=== PATIENT | female | born 1975 | race Two or more races ===

== ENCOUNTER 2022-05-29 17:35 | Emergency (ER) | payer SELFPAY ==
[~2022-05-29] VITALS: Ht 165.1 cm; Wt 105.0 kg
[2022-05-29 21:11] LABS: Albumin 3.8 g/dL (3.4-5.0); BUN/Creatinine Ratio 15.1; Potassium 3.9 mmol/L (3.5-5.1)
[2022-05-29 21:14] LABS: Bilirubin, Total 0.2 mg/dL (0.2-1.0); Total Protein 7.6 g/dL (6.4-8.2)
[2022-05-29 21:20] LABS: Basophils # (auto) 0.2 10 ^3/uL (0-0.2); Basophils % (auto) 1.4 % (0.0-2.0); Eosinophils # (auto) 0.8 10 ^3/uL (0-0.8); Eosinophils % (auto) 6.6 % (0.0-7.0); Hematocrit 37.1 % (36.0-46.0); Hemoglobin 12.4 g/dL (12.2-16.2); Lymphocytes # (auto) 2.7 10 ^3/uL (0.4-5.4); Lymphocytes % (auto) 21.5 % (10.0-50.0); Mean Corpuscular Hemoglobin 27.1 pg (28.0-32.0); Mean Corpuscular Hgb Conc. 33.5 g/dL (32.0-36.0); Monocytes # (auto) 0.9 10 ^3/uL (0-1.3); Monocytes % (auto) 6.8 % (0.0-12.0); Neutrophils # (auto) 8.1 10 ^3/uL (1.6-8.6); Neutrophils % (auto) 63.7 % (37.0-80.0); Nucleated Red Blood Cells % 0.2 %; Red Blood Cells 4.58 10^6/uL (4.0-5.20); Red Cell Distribution Width 15.7 % (11.8-14.3); White Blood Cell 12.8 10^3/uL (4.4-10.8)
[2022-05-30 00:29] LABS: Urine Bacteria FEW /hpf (None Seen); Urine Blood 3+ /uL (Negative); Urine Specific Gravity 1.011 (1.001-1.035); Urine WBC 7 /hpf (0 - 5)
[2022-05-30] MEDS ORDERED: NITR-87 PO (00:47)
[2022-05-30] MEDS ORDERED: cefTRIAXone SOD 1,000 MG VL IM ONE (01:00)
[2022-05-30 01:36] VITALS: BP 134/81
== END 2022-05-30 01:37 | disposition home or self-care (01) ==
LOC: ER 17:35
DX: N39.0 Urinary tract infection, site not specified (principal)
CPT/HCPCS: 36415; 71045; 80053; 81001; 83880; 84484; 85025; 85379; 96372; 99284; J0696

== ENCOUNTER 2023-08-21 17:57 | Emergency (ER) | payer MEDICAID, OTHER ==
[~2023-08-21] VITALS: Ht 165.1 cm; Wt 91.7 kg
[~2023-08-21 17:57] MED LIST: NITR-87 PO
[2023-08-21 18:50] VITALS: BP 137/84; PULSE 77; RESP 18; O2SAT 99
== END 2023-08-21 21:57 | disposition left against medical advice (07) ==
LOC: ER 17:57
DX: K62.89 Other specified diseases of anus and rectum (principal); Z53.21 Procedure and treatment not carried out due to patient leaving prior to being seen by health care provider

== ENCOUNTER 2023-09-25 15:24 | Emergency (ER) | payer MEDICAID ==
[~2023-09-25] VITALS: Ht 165.1 cm; Wt 88.0 kg
[2023-09-25 16:36] VITALS: BP 133/75; PULSE 74; RESP 16; TEMP 97.9; O2SAT 95
[2023-09-25] MEDS: HYDROcodone-ACET 5/325MG TAB PO ONE (16:43)
[2023-09-25 16:57] LABS: Urine Bacteria FEW /hpf (None Seen); Urine Blood 3+ /uL (Negative); Urine Clarity Turbid (Clear); Urine Color Colorless (Yellow); Urine Protein, UAD TRACE (Negative); Urine Specific Gravity 1.003 (1.001-1.035); Urine Urobilinogen Normal (Negative); Urine WBC 4 /hpf (0 - 5)
[2023-09-25] MEDS: NITROFURANTOIN 100 mg CAP PO ONE (17:15)
[2023-09-25] MEDS ORDERED: NITR-87 PO (17:26)
[2023-09-25] MEDS ORDERED: IBUP-1455 PO (17:26)
[2023-09-25] MEDS ORDERED: HYDR-4902 PO (17:26)
== END 2023-09-25 18:14 | disposition home or self-care (01) ==
LOC: ER 15:24
DX: N39.0 Urinary tract infection, site not specified (principal); K62.89 Other specified diseases of anus and rectum; R10.2 Pelvic and perineal pain; Z32.02 Encounter for pregnancy test, result negative
CPT/HCPCS: 81001; 81025

== ENCOUNTER 2023-10-20 12:05 | Inpatient (IN) | payer MEDICAID ==
[~2023-10-20] VITALS: Ht 165.1 cm; Wt 95.4 kg
[~2023-10-20 12:05] MED LIST changes: +HYDR-4902 PO; +IBUP-1455 PO
[2023-10-20] MEDS: ONDANSETRON HCL 4 MG/2 ML VIAL IV ONE (13:20)
[2023-10-20] MEDS: SODIUM CHLORIDE 0.9% 1,000 ML IVB ONE (13:20)
[2023-10-20] MEDS: PANTOPRAZOLE 40 MG/10 ML VIAL INJ IV ONE (13:24)
[2023-10-20] MEDS: MORPHINE SULFATE 4 MG/ML SYR/VIAL IV ONE (13:25)
[2023-10-20 13:30] LABS: Basophils # (auto) 0.2 10 ^3/uL (0-0.2); Basophils % (auto) 1.3 % (0.0-2.0); Eosinophils # (auto) 1.6 10 ^3/uL (0-0.8); Eosinophils % (auto) 13.3 % (0.0-7.0); Hematocrit 38.4 % (36.0-46.0); Lymphocytes # (auto) 2.8 10 ^3/uL (0.4-5.4); Lymphocytes % (auto) 23.2 % (10.0-50.0); Mean Corpuscular Hemoglobin 27.4 pg (28.0-32.0); Mean Corpuscular Hgb Conc. 33.8 g/dL (32.0-36.0); Mean Corpuscular Volume 81.1 fL (80.0-100.0); Monocytes # (auto) 0.6 10 ^3/uL (0-1.3); Monocytes % (auto) 5.4 % (0.0-12.0); Neutrophils # (auto) 6.8 10 ^3/uL (1.6-8.6); Neutrophils % (auto) 56.8 % (37.0-80.0); Red Blood Cells 4.74 10^6/uL (4.0-5.20); Red Cell Distribution Width 15.4 % (11.8-14.3)
[2023-10-20 13:43] LABS: Alanine Aminotransferase 29 U/L (7-40); Albumin 4.8 g/dL (3.2-4.8); Alkaline Phosphatase 111 U/L (46-116); Anion Gap 9 (5-15); Aspartate Aminotransferase 14 U/L (13-40); Bilirubin, Total 0.6 mg/dL (0.2-1.0); Blood Urea Nitrogen 5 mg/dL (9-23); Calcium 10.3 mg/dL (8.7-10.4); Carbon Dioxide 24 mmol/L (20-30); Chloride 106 mmol/L (98-107); Glucose 89 mg/dL (74-106); Lipase 39 U/L (12-53); Potassium 3.7 mmol/L (3.5-5.1); Sodium 139 mmol/L (136-145)
[2023-10-20 13:44] LABS: Total Protein 7.7 g/dL (5.7-8.2)
[2023-10-20] MEDS ORDERED: ACETAMINOPHEN 325 MG TAB PO PRN (16:30)
[2023-10-20] MEDS ORDERED: DOCUSATE SOD 100 MG CAP PO PRN (16:30)
[2023-10-20 18:18] LABS: Urine Bacteria FEW /hpf (None Seen); Urine Blood 3+ /uL (Negative); Urine Clarity Clear (Clear); Urine Color Colorless (Yellow); Urine Protein, UAD Negative (Negative); Urine Specific Gravity 1.003 (1.001-1.035); Urine Urobilinogen Normal (Negative); Urine WBC 1 /hpf (0 - 5); Urine pH 6.5 (5.0-9.0)
[2023-10-20] MEDS: HYDROcodone-ACET 5/325MG TAB PO PRN (19:43)
[2023-10-20] MEDS: PANTOPRAZOLE 40 MG/10 ML VIAL INJ IV SCH (22:49)
[2023-10-20] MEDS: SODIUM CHLOR 0.9% PF (SALINE LOCK) 10ML VIAL/SYR IV SCH (22:50)
[2023-10-21] MEDS: ENOXAPARIN SOD 40 MG/0.4 ML SYRINGE SC SCH (08:50)
[2023-10-21 11:48] LABS: Amphetamine Screen, Urine Neg (NEGATIVE)
[2023-10-21 11:50] LABS: Barbiturate Scree,Urine Neg (NEGATIVE); Benzodiazephine Screen, Urine Neg (NEGATIVE); Cocaine Screen, Urine Neg (NEGATIVE); Opiate Scree,Urine Neg (NEGATIVE); Phencyclidine Screen, Urine Neg (NEGATIVE)
[2023-10-21 12:44] LABS: Hepatitis B Surface Antigen Negative (Negative)
[2023-10-21 13:03] LABS: Cannabinoid Screen, Urine Neg (NEGATIVE)
[2023-10-21 13:05] LABS: Hepatitis A Ab IgM Negative
[2023-10-21 13:06] LABS: Hepatitis B Core IgM Negative; Hepatitis C Antibody Negative (Negative)
[2023-10-21 13:53] LABS: Basophils # (auto) 0.1 10 ^3/uL (0-0.2); Basophils % (auto) 0.9 % (0.0-2.0); Eosinophils # (auto) 0.5 10 ^3/uL (0-0.8); Eosinophils % (auto) 5.1 % (0.0-7.0); Hematocrit 36.6 % (36.0-46.0); Hemoglobin 12.3 g/dL (12.2-16.2); Lymphocytes # (auto) 1.3 10 ^3/uL (0.4-5.4); Lymphocytes % (auto) 13.8 % (10.0-50.0); Mean Corpuscular Hemoglobin 27.3 pg (28.0-32.0); Mean Corpuscular Hgb Conc. 33.6 g/dL (32.0-36.0); Mean Corpuscular Volume 81.2 fL (80.0-100.0); Monocytes # (auto) 0.7 10 ^3/uL (0-1.3); Monocytes % (auto) 7.8 % (0.0-12.0); Neutrophils # (auto) 6.9 10 ^3/uL (1.6-8.6); Neutrophils % (auto) 72.4 % (37.0-80.0); Red Blood Cells 4.51 10^6/uL (4.0-5.20); Red Cell Distribution Width 15.3 % (11.8-14.3); White Blood Cell 9.6 10^3/uL (4.4-10.8)
[2023-10-21 14:00] LABS: Alanine Aminotransferase 347 U/L (7-40); Albumin 4.8 g/dL (3.2-4.8); Alkaline Phosphatase 189 U/L (46-116); Anion Gap 5 (5-15); Aspartate Aminotransferase 331 U/L (13-40); BUN/Creatinine Ratio 6.5 (10.0-20.0); Blood Urea Nitrogen 5 mg/dL (9-23); Carbon Dioxide 28 mmol/L (20-30); Chloride 107 mmol/L (98-107); Glucose 100 mg/dL (74-106); Potassium 4.5 mmol/L (3.5-5.1); Sodium 140 mmol/L (136-145)
[2023-10-21 14:01] LABS: Bilirubin, Total 0.5 mg/dL (0.2-1.0); Total Protein 7.3 g/dL (5.7-8.2)
[2023-10-21] MEDS: HYDROmorphone HCL 2 MG/ML VL/or syr IV PRN (14:16)
[2023-10-21] MEDS: LEVOTHYROXINE SODIUM 88 MCG TAB PO ONE (14:30)
[2023-10-21 15:39] VITALS: BP 149/96; PULSE 75; RESP 20; TEMP 98.3; O2SAT 98
[2023-10-21] MEDS ORDERED: LEVO88TA4 PO ×2 (18:29)
[2023-10-21] MEDS ORDERED: ERGO2000 PO ×2 (18:29)
[2023-10-21] MEDS ORDERED: POLYSOL2 PO ×2 (18:29)
[2023-10-21] MEDS ORDERED: OMEP20TA PO ×2 (18:29)
[2023-10-21] MEDS: MORPHINE SULFATE INJ 2 MG/ml SYRG IV PRN (18:55)
[2023-10-21] MEDS: ONDANSETRON HCL 4 MG/2 ML VIAL IV PRN (18:55)
[2023-10-21] MEDS: cefTRIAXone 1GM/50ML D5W 50 ML IV ONE (18:56)
[2023-10-21 20:00] VITALS: PULSE 71; RESP 18; O2SAT 99
[2023-10-21 20:46] LABS: Free T3 2.98 pg/mL (2.3-4.2)
[2023-10-21 20:47] LABS: Free T4 (Free Thyroxine) 0.96 ng/dL (0.89-1.76)
[2023-10-21 21:00] VITALS: BP 126/82; PULSE 79; RESP 18; TEMP 97.8; O2SAT 95
[2023-10-21] MEDS: KETOROLAC TROMETH 30 MG/ML 1ML VIAL IV ONE (23:58)
[2023-10-22 01:00] VITALS: BP 107/59; PULSE 71; RESP 18; TEMP 97.6; O2SAT 98
[2023-10-22 05:00] VITALS: BP 105/70; PULSE 73; RESP 16; TEMP 97.9; O2SAT 96
[2023-10-22] MEDS: LEVOTHYROXINE SODIUM 88 MCG TAB PO SCH (06:00)
[2023-10-22] MEDS: cefTRIAXone 1GM/50ML D5W 50 ML IV SCH (08:29)
[2023-10-22 08:40] VITALS: BP 133/94; PULSE 85; RESP 18; TEMP 98.5; O2SAT 95
[2023-10-22 09:11] LABS: Basophils # (auto) 0.1 10 ^3/uL (0-0.2); Eosinophils # (auto) 0.9 10 ^3/uL (0-0.8); Eosinophils % (auto) 9.8 % (0.0-7.0); Hematocrit 36.4 % (36.0-46.0); Hemoglobin 12.4 g/dL (12.2-16.2); Lymphocytes # (auto) 1.7 10 ^3/uL (0.4-5.4); Mean Corpuscular Hemoglobin 27.9 pg (28.0-32.0); Mean Corpuscular Hgb Conc. 34.1 g/dL (32.0-36.0); Mean Corpuscular Volume 81.6 fL (80.0-100.0); Monocytes # (auto) 0.5 10 ^3/uL (0-1.3); Monocytes % (auto) 5.8 % (0.0-12.0); Neutrophils # (auto) 5.9 10 ^3/uL (1.6-8.6); Neutrophils % (auto) 64.4 % (37.0-80.0); Red Blood Cells 4.46 10^6/uL (4.0-5.20); Red Cell Distribution Width 15.1 % (11.8-14.3); White Blood Cell 9.1 10^3/uL (4.4-10.8)
[2023-10-22 09:18] LABS: Anion Gap 5 (5-15); Carbon Dioxide 27 mmol/L (20-30); Chloride 109 mmol/L (98-107); Potassium 4.3 mmol/L (3.5-5.1); Sodium 141 mmol/L (136-145)
[2023-10-22 09:19] LABS: Calcium 9.8 mg/dL (8.7-10.4)
[2023-10-22 09:24] LABS: BUN/Creatinine Ratio 6.6 (10.0-20.0); Blood Urea Nitrogen < 5 mg/dL (9-23); Glucose 119 mg/dL (74-106)
[2023-10-22] MEDS ORDERED: LIDOCAINE HCL 5 % TOP OINT 35 GM TOP ONE (11:45)
[2023-10-22 12:40] VITALS: BP 136/86; PULSE 71; RESP 20; TEMP 98.2; O2SAT 98
[2023-10-22] MEDS: LIDOCAINE HCL 5 % TOP OINT 35 GM TOP PRN (14:32)
[2023-10-22] MEDS: KETOROLAC TROMETH 30 MG/ML 1ML VIAL IV ONE (14:59)
[2023-10-22 15:07] LABS: Alanine Aminotransferase 225 U/L (7-40); Albumin 4.5 g/dL (3.2-4.8); Alkaline Phosphatase 156 U/L (46-116); Anion Gap 5 (5-15); Aspartate Aminotransferase 92 U/L (13-40); Calcium 9.7 mg/dL (8.7-10.4); Carbon Dioxide 27 mmol/L (20-30); Chloride 106 mmol/L (98-107); Glucose 99 mg/dL (74-106); Potassium 4.3 mmol/L (3.5-5.1); Sodium 138 mmol/L (136-145)
[2023-10-22 15:08] LABS: Bilirubin, Total 0.4 mg/dL (0.2-1.0); Total Protein 6.8 g/dL (5.7-8.2)
[2023-10-22 15:09] LABS: Blood Urea Nitrogen < 5 mg/dL (9-23)
[2023-10-22 16:30] VITALS: BP 126/81; PULSE 70; RESP 18; TEMP 98.3; O2SAT 98
[2023-10-22] MEDS: HYDROcodone-ACET 7.5/325MG TAB PO PRN (17:26)
[2023-10-22 21:00] VITALS: BP 141/85; PULSE 67; RESP 20; TEMP 97.6; O2SAT 100
[2023-10-23 01:00] VITALS: BP 138/79; PULSE 79; RESP 18; TEMP 98.2; O2SAT 100
[2023-10-23 05:00] VITALS: BP 148/95; PULSE 90; RESP 18; TEMP 98.5; O2SAT 98
[2023-10-23 07:02] LABS: Alanine Aminotransferase 173 U/L (7-40); Albumin 4.3 g/dL (3.2-4.8); Alkaline Phosphatase 144 U/L (46-116); Anion Gap 7 (5-15); Aspartate Aminotransferase 51 U/L (13-40); Calcium 9.9 mg/dL (8.7-10.4); Carbon Dioxide 27 mmol/L (20-30); Chloride 108 mmol/L (98-107); Glucose 90 mg/dL (74-106); Potassium 3.6 mmol/L (3.5-5.1); Sodium 142 mmol/L (136-145)
[2023-10-23 07:03] LABS: Bilirubin, Total 0.5 mg/dL (0.2-1.0); Total Protein 6.6 g/dL (5.7-8.2)
[2023-10-23 07:09] LABS: BUN/Creatinine Ratio 6.8 (10.0-20.0); Blood Urea Nitrogen < 5 mg/dL (9-23)
[2023-10-23] MEDS: cefTRIAXone 1GM/50ML D5W 50 ML IV ONE (07:52)
[2023-10-23] MEDS: DOCUSATE SOD 100 MG CAP PO ONE (07:53)
[2023-10-23 08:00] VITALS: BP 134/92; PULSE 80; RESP 18; TEMP 98.8; O2SAT 98
[2023-10-23 13:00] VITALS: BP 133/87; PULSE 88; RESP 18; TEMP 98.9; O2SAT 98
[2023-10-23] MEDS ORDERED: LID35TP TOP ×2 (14:18)
[2023-10-23] MEDS ORDERED: CEPH250C PO ×2 (14:18)
[2023-10-23 16:26] VITALS: BP 135/63; PULSE 71; RESP 20; TEMP 98; O2SAT 100
[2023-10-23 16:29] VITALS: BP 130/60; PULSE 80; RESP 16
[2023-10-23 17:06] LABS: Chlamydia Trachomatis, NAA Negative (Negative); Neisseria gonorrhoeae, NAA Negative (Negative)
[2023-10-23] MEDS ORDERED: DOCUSATE SOD 100 MG CAP PO SCH (22:00)
[2023-10-24] MEDS ORDERED: cefTRIAXone 1GM/50ML D5W 50 ML IV SCH (09:00)
[2023-10-24 09:08] LABS: Hepatitis B Surface Antibody Negative (Negative)
[2023-10-24 09:41] LABS: Hepatitis C Antibody Negative (Negative)
== END 2023-10-23 21:14 | disposition home or self-care (01) | DRG 254 ==
LOC: ER 12:05 → OVERFLOW 16:31 → WEST WING 10-21 18:19
PROVIDERS: ADMIT Internal Medicine; ATTEND Internal Medicine
DX: K64.9 Unspecified hemorrhoids (principal); K76.0 Fatty (change of) liver, not elsewhere classified; E03.9 Hypothyroidism, unspecified; I10 Essential (primary) hypertension; N81.10 Cystocele, unspecified; N81.6 Rectocele; K57.90 Diverticulosis of intestine, part unspecified, without perforation or abscess without bleeding; N39.0 Urinary tract infection, site not specified; K29.50 Unspecified chronic gastritis without bleeding; K21.9 Gastro-esophageal reflux disease without esophagitis; J45.909 Unspecified asthma, uncomplicated; Z80.0 Family history of malignant neoplasm of digestive organs; Z83.3 Family history of diabetes mellitus; Z82.49 Family history of ischemic heart disease and other diseases of the circulatory system; Z86.711 Personal history of pulmonary embolism; Z98.51 Tubal ligation status
CPT/HCPCS: 36415; 74176; 74178; 76705; 80048; 80053; 80074; 80307; 81001; 82306; 82607; 83605; 83690; 84439; 84443; 84481; 85025; 86706; 86803; 87086; 96372; 96374; 96375; 96376; G0378; J1885; J2405; J2470

== ENCOUNTER 2023-10-25 09:30 | Emergency (ER) | payer MEDICAID ==
[~2023-10-25] VITALS: Ht 165.1 cm; Wt 86.3 kg
[~2023-10-25 09:30] MED LIST changes: +CEPH250C PO; +ERGO2000 PO; +LEVO88TA4 PO; +LID35TP TOP; +OMEP20TA PO; +POLYSOL2 PO
[2023-10-25] MEDS: ONDANSETRON ODT 4 MG TAB PO ONE (10:18)
[2023-10-25] MEDS: MORPHINE SULFATE 4 MG/ML SYR/VIAL IV ONE (10:19)
[2023-10-25 10:38] VITALS: PULSE 76; RESP 14; O2SAT 92
[2023-10-25 11:48] LABS: Urine Bacteria None Seen /hpf (None Seen)
[2023-10-25 12:00] VITALS: BP 126/75; PULSE 61; RESP 14; O2SAT 97
[2023-10-25 12:07] LABS: Urine Blood Negative /uL (Negative); Urine Clarity Clear (Clear); Urine Color Colorless (Yellow); Urine Protein, UAD Negative (Negative); Urine Specific Gravity 1.003 (1.001-1.035); Urine Urobilinogen Normal (Negative); Urine WBC <1 /hpf (0 - 5)
[2023-10-25] MEDS: HYDROcodone-ACET 10/325MG TAB PO ONE (12:47)
== END 2023-10-25 12:48 | disposition home or self-care (01) ==
LOC: EDBD 09:30 → ER 09:30
DX: K62.89 Other specified diseases of anus and rectum (principal); M54.9 Dorsalgia, unspecified; R10.9 Unspecified abdominal pain; J45.909 Unspecified asthma, uncomplicated; K21.9 Gastro-esophageal reflux disease without esophagitis; Z86.2 Personal history of diseases of the blood and blood-forming organs and certain disorders involving the immune mechanism; Z98.890 Other specified postprocedural states; Z79.899 Other long term (current) drug therapy
CPT/HCPCS: 81001; 96374; 99285; J2270; Q0162

== ENCOUNTER 2023-10-26 20:45 | Emergency (ER) | payer MEDICAID ==
[~2023-10-26] VITALS: Ht 165.1 cm; Wt 83.8 kg
[~2023-10-26 20:45] MED LIST changes: -NITR-87 PO
[2023-10-26] MEDS: MORPHINE SULFATE 4 MG/ML SYR/VIAL IM ONE (23:18)
[2023-10-26] MEDS: HYDROcodone-ACET 10/325MG TAB PO ONE (23:50)
[2023-10-26 23:58] VITALS: BP 121/81; PULSE 71; RESP 18; TEMP 98.2; O2SAT 96
[2023-10-27] MEDS: ACETAMINOPHEN 500 MG TAB PO ONE
[2023-10-27] MEDS ORDERED: HYDR-4798 PO (00:02)
== END 2023-10-27 00:32 | disposition home or self-care (01) ==
LOC: ER 20:45
DX: K62.3 Rectal prolapse (principal); J45.909 Unspecified asthma, uncomplicated; K21.9 Gastro-esophageal reflux disease without esophagitis; Z90.49 Acquired absence of other specified parts of digestive tract; Z98.51 Tubal ligation status
CPT/HCPCS: 96372; 99283; J2270

== ENCOUNTER 2023-11-04 16:23 | Emergency (ER) | payer MEDICAID ==
[~2023-11-04] VITALS: Ht 165.1 cm; Wt 77.3 kg
[~2023-11-04 16:23] MED LIST changes: +HYDR-4798 PO
[2023-11-04 16:53] LABS: Urine Bacteria None Seen /hpf (None Seen)
[2023-11-04 17:03] LABS: Urine Blood Negative /uL (Negative); Urine Clarity Clear (Clear); Urine Color Colorless (Yellow); Urine Protein, UAD Negative (Negative); Urine Specific Gravity 1.001 (1.001-1.035); Urine Urobilinogen Normal (Negative); Urine WBC <1 /hpf (0 - 5)
[2023-11-04 17:55] VITALS: PULSE 74; RESP 18; O2SAT 96
[2023-11-04] MEDS: ONDANSETRON HCL 4 MG/2 ML VIAL IV ONE (18:17)
[2023-11-04] MEDS: methylPREDNISolone SOD SUCC 125 MG/2 ML VL IM ONE (18:18)
[2023-11-04] MEDS: MORPHINE SULFATE 4 MG/ML SYR/VIAL IV ONE (18:19)
[2023-11-04] MEDS ORDERED: LACT10SO3 PO (19:43)
[2023-11-04 20:45] VITALS: BP 134/75; PULSE 80; RESP 18; TEMP 98.4; O2SAT 100
== END 2023-11-04 20:45 | disposition home or self-care (01) ==
LOC: ER 16:23
DX: K62.89 Other specified diseases of anus and rectum (principal); K62.3 Rectal prolapse; J45.909 Unspecified asthma, uncomplicated; K21.9 Gastro-esophageal reflux disease without esophagitis; Z90.49 Acquired absence of other specified parts of digestive tract; Z98.51 Tubal ligation status
CPT/HCPCS: 71045; 81001; 93005; 96372; 96374; 96375; 99285; J2270; J2405; J2919

== ENCOUNTER 2024-03-30 10:17 | Emergency (ER) | payer MEDICAID ==
[~2024-03-30] VITALS: Ht 165.1 cm; Wt 73.1 kg
[~2024-03-30 10:17] MED LIST changes: +LACT10SO3 PO
[2024-03-30 11:09] LABS: Alanine Aminotransferase 21 U/L (7-40); Alkaline Phosphatase 109 U/L (46-116); Calcium 10.4 mg/dL (8.7-10.4); Carbon Dioxide 28 mmol/L (20-31)
[2024-03-30 11:10] LABS: Albumin 4.8 g/dL (3.2-4.8); Anion Gap 5 (5-15); Aspartate Aminotransferase 15 U/L (13-40); BUN/Creatinine Ratio 17.8 (10.0-20.0); Bilirubin, Total 0.5 mg/dL (0.2-1.0); Blood Urea Nitrogen 13 mg/dL (9-23); Glucose 89 mg/dL (74-106); Potassium 4.3 mmol/L (3.5-5.1); Sodium 140 mmol/L (136-145); Total Protein 7.6 g/dL (5.7-8.2)
[2024-03-30 11:14] LABS: Basophils # (auto) 0.2 10 ^3/uL (0-0.2); Eosinophils # (auto) 1.1 10 ^3/uL (0-0.8); Lymphocytes # (auto) 2.1 10 ^3/uL (0.4-5.4); Mean Corpuscular Hemoglobin 25.7 pg (28.0-32.0); Neutrophils # (auto) 4.3 10 ^3/uL (1.6-8.6); Nucleated Red Blood Cells % 0.1 %; White Blood Cell 8.2 10^3/uL (4.4-10.8)
[2024-03-30 11:17] LABS: Chloride 107 mmol/L (98-107)
[2024-03-30 11:19] LABS: Basophils % (auto) 2.1 % (0.0-2.0); Eosinophils % (auto) 13.2 % (0.0-7.0); Hematocrit 39.5 % (36.0-46.0); Lymphocytes % (auto) 25.7 % (10.0-50.0); Monocytes # (auto) 0.6 10 ^3/uL (0-1.3); Platelet Count (auto) 317 10^3/uL (140-450); Red Blood Cells 5.06 10^6/uL (4.0-5.20)
[2024-03-30 11:48] LABS: Red Cell Distribution Width 20.9 % (11.8-14.3)
--- NOTE | 2024-03-30 12:14 | DVH ---
CHEST RADIOGRAPH Indication: cough Technique: Frontal and lateral view of the chest was obtained Comparison: None FINDINGS: Lines and Tubes: None Lungs: Clear Pleura: No effusion. No pneumothorax. Cardiomediastinal contours: Unremarkable Bones: Unremarkable IMPRESSION: No evidence of acute disease.
[2024-03-30 12:58] LABS: COVID19 ANTIGEN SOFIA FIA NEGATIVE (NEGATIVE); Rapid Influenza A Negative (Negative); Rapid Influenza B Negative (Negative)
--- NOTE | 2024-03-30 14:00 | ED.PDOC ---
History of Present Illness HPI Comments 48 y/o F presents with shortness of breath and chest tightness, today. Patient endorses on unprovoked onset of symptoms, with minimal relief with inhaler use. She states on being seen in the ED, yesterday for same issue of shortness of breath with minimal relief with inhaler use. She reports no recent additional relevant or pertinent Hx, such as strenuous activities at this time. She denies having any palpitations, dizziness, lightheadedness, or other associated symptoms or modifiers at this time. Chief Complaint: Chest Pain Time Seen by MD: 13:00 Primary Care Provider: Mejia contreras Reviewed Notes: Nurses Notes, Medications, Allergies Allergies: Coded Allergies: NO KNOWN ALLERGIES (Unverified , 05/29/22) Home Meds Active Scripts Methylprednisolone (Medrol Dosepak) 4 Mg Ricardo, 4 MG PO UD, #21 TAB UAD Prov:NELLY NGUYEN MD 03/30/24 Azithromycin (Zithromax) 1 Gm Pow, 1 PACK PO ONCE, #1 PACK Prov:NELLY NGUYEN MD 03/30/24 Lactulose (Lactulose) 10 Gm/15 Ml Shahla, 10 GM PO BID PRN, #200 ML Prov:BERENICE ALFARO 11/04/23 Hydrocodone-Acetaminophen (Hydrocodone Bitartrate/AC 10-325 mg) 1 Tab Tab, 1 TAB PO Q8HP PRN, #20 TAB Prov:BUSTER MAURER PAC 10/27/23 Cephalexin (KEFLEX CAPSULE) 250 Mg Cp, 1 CAP PO QID for 7 Days, #28 CAP Prov:VINOD MCWILLIAMS RESIDENT 10/23/23 Lidocaine Hcl (Lidocaine) 5 % Oin, 1 APPLIC TOP Q8HP PRN for 30 Days, #10 OIN Prov:VINOD MCWILLIAMS RESIDENT 10/23/23 Hydrocodone-Acetaminophen (Hydrocodone Bitartrate/AC 5-325 mg) 1 Tab Tab, 1 TAB PO Q6HP PRN, #20 TAB Prov:BUSTER MAURER PAC 09/25/23 Ibuprofen Micronized (Ibuprofen) 800 Mg Tab, 800 MG PO Q8HP PRN, #20 TAB Prov:BUSTER MAURER PAC 09/25/23 Reported Medications Polyethylene Glycol-Propylene (Systane) Shahla, 1 SCOOP PO DAILY, ML 7/15/24 Omeprazole (Gnp Omeprazole) 20 Mg Tab, 1 TAB PO DAILY, #90 TAB 1 Refill 10/21/23 Levothyroxine Sodium (Levothyroxine Sodium) 88 Mcg Tab, 88 MCG PO QAM for 30 Days, MCG 10/21/23 Ergocalciferol (VITAMIN D2) 2,000 Unit Tab, 89075 UNIT PO, TAB 10/21/23 Information Source: Patient Mode of Arrival: Ambulatory Past Medical History PAST MEDICAL HISTORY: Anemia, Asthma, GERD, PE, Thyroid Surgical History: Cholecystectomy, Tubal Ligation Surgical History (Other): left foot Sx GEM EXPERT History: Denies all GEM EXPERT Hx Family History Family History: Reviewed,noncontributory to illness, Family hx of DM Family History (Other): rheumatoid arthritis Social History Smoker: Non-Smoker Alcohol: Denies ETOH Use Drugs: Denies Drug Use Lives In: Home Constitutional: denies: chills, diaphoresis, fatigue, fever, malaise, sweats, weakness, others EENTM: denies: blurred vision, double vision, ear bleeding, ear discharge, ear drainage, ear pain, ear ringing, eye pain, eye redness, hearing loss, mouth pain, mouth swelling, nasal discharge, nose bleeding, nose congestion, nose pain, photophobia, tearing, throat pain, throat swelling, voice changes, others Respiratory: reports: shortness of breath; denies: cough, hemoptysis, orthopnea, SOB at rest, SOB with excertion, stridor, wheezing, others Cardiovascular: reports: chest pain; denies: dizzy spells, diaphoresis, Dyspnea on exertion, edema, irregular heart beat, left arm pain, lightheadedness, palpitations, PND, syncope, others Gastrointestinal: denies: abdomen distended, abdominal pain, blood streaked bowels, constipated, diarrhea, dysphagia, difficulty swallowing, hematemesis, melena, nausea, poor appetite, poor fluid intake, rectal bleeding, rectal pain, vomiting, others Genitourinary: denies: abnormal vagina bleeding, burning, dyspareunia, dysuria, flank pain, frequency, hematuria, incontinence, pain, , vagina discharge, urgency, others Neurological: denies: dizziness, fainting, headache, left sided numbness, left sided weakness, numbness, paresthesia, pre-existing deficit, right sided numbness, right sided weakness, seizure, speech problems, tingling, tremors, weakness, others Musculoskeletal: denies: back pain, gout, joint pain, joint swelling, muscle pain, muscle stiffness, neck pain, others Integumetry: denies: bruises, change in color, change in hair/nails, dryness, laceration, lesions, lumps, rash, wounds, others Allergic/Immunocompromised: denies: Difficulty Healing, Frequent Infections, Hives, Itching, others Hematologic/Lymphatic: denies: anemia, blood clots, easy bleeding, easy bruising, swollen glands, others Endocrine: denies: excessive hunger, excessive sweating, excessive thirst, excessive urination, flushing, intolerance to cold, intolerance to heat, unexplained weight gain, unexplained weight loss, others Psychiatric: denies: anxiety, bipolar disorder, depression, hopeless, panic disorder, schizophrenia, sleepless, suicidal, others All Other Systems: Reviewed and Negative Physical Exam General Appearance: No Apparent Distress HEENT: Normal ENT Inspection, Pharynx Normal, TMs Normal Neck: Full Range of Motion, Non-Tender, Normal, Normal Inspection Respiratory: Chest Non-Tender, Lungs Clear, No Accessory Muscle Use, No Respiratory Distress, Normal Breath Sounds Cardiovascular: No Edema, No JVD, No Murmur, No Gallop, Normal Peripheral Pulses, Regular Rate/Rhythm Breast Exam: Deferred Gastrointestinal: No Organomegaly, Non Tender, No Pulsatile Mass, Normal Bowel Sounds, Soft Genitalia: Deferred Pelvic: Deferred Rectal: Deferred Extremities: No calf tenderness, Normal capillary refill, Normal inspection, Normal range of motion, Non-tender, No pedal edema Musculoskeletal : Apperance: Normal Neurologic: Alert, auto care center manager II-XII nml as Tested, No Motor Deficits, Normal Affect, Normal Mood, No Sensory Deficits Cerebellar Function: Normal Reflexes: Normal Skin: Dry, Normal Color, Warm Lymphatic: No Adenopathy Was a procedure done? Was a procedure done?: No EKG EKG : Pulse Rate (adult): 76 [place]: Normal Cardiac Rhythm: NSR Block: None Hypertrophy: None ST: Normal Differential Dx Considerations may include: PNA, PE, bronchitis, asthma exacerbation X-Ray, Labs, Meds, VS Vital Signs Date Time Temp Pulse Resp B/P (MAP) Pulse Ox O2 Delivery O2 Flow Rate FiO2 12/23/24 14:00 98.3 77 16 120/79 (93) 98 98.3 03/30/24 14:00 76 03/30/24 12:00 98.3 78 16 129/77 (94) 96 98.3 03/30/24 10:27 97.2 78 18 146/85 (105) 99 03/30/24 10:24 77 Lab Test 03/30/24 12:07 03/30/24 11:28 03/30/24 10:30 Range/Units Influenza Type A Antigen Negative Negative Influenza Type B Antigen Negative Negative SARS-CoV-2 Antigen (Rapid) Negative NEGATIVE Troponin I High Sensitivity < 3 L < 3 L </=34 ng/L White Blood Count 8.2 4.4-10.8 10^3/uL Red Blood Count 5.06 4.0-5.20 10^6/uL Hemoglobin 13.0 12.2-16.2 g/dL Hematocrit 39.5 36.0-46.0 % Mean Corpuscular Volume 78.0 L 80.0-100.0 fL Mean Corpuscular Hemoglobin 25.7 L 28.0-32.0 pg Mean Corpuscular Hemoglobin Concent 33.0 32.0-36.0 g/dL Red Cell Distribution Width 20.9 H 11.8-14.3 % Platelet Count 317 140-450 10^3/uL Mean Platelet Volume 8.6 6.9-10.8 fL Neutrophils (%) (Auto) 52.0 37.0-80.0 % Lymphocytes (%) (Auto) 25.7 10.0-50.0 % Monocytes (%) (Auto) 7.0 0.0-12.0 % Eosinophils (%) (Auto) 13.2 H 0.0-7.0 % Basophils (%) (Auto) 2.1 H 0.0-2.0 % Neutrophils # (Auto) 4.3 1.6-8.6 10 ^3/uL Lymphocytes # (Auto) 2.1 0.4-5.4 10 ^3/uL Monocytes # (Auto) 0.6 0-1.3 10 ^3/uL Eosinophils # (Auto) 1.1 H 0-0.8 10 ^3/uL Basophils # (Auto) 0.2 0-0.2 10 ^3/uL Nucleated Red Blood Cells 0.1 % Sodium Level 140 136-145 mmol/L Potassium Level 4.3 3.5-5.1 mmol/L Chloride Level 107 98-107 mmol/L Carbon Dioxide Level 28 20-31 mmol/L Anion Gap 5 5-15 Blood Urea Nitrogen 13 9-23 mg/dL Creatinine 0.73 0.550-1.02 mg/dL Glomerular Filtration Rate Calc 102 >90 mL/min BUN/Creatinine Ratio 17.8 10.0-20.0 Serum Glucose 89 74-106 mg/dL Calcium Level 10.4 8.7-10.4 mg/dL Total Bilirubin 0.5 0.2-1.0 mg/dL Aspartate Amino Transferase (AST) 15 13-40 U/L Alanine Aminotransferase (ALT) 21 7-40 U/L Alkaline Phosphatase 109 46-116 U/L Total Protein 7.6 5.7-8.2 g/dL Albumin 4.8 3.2-4.8 g/dL [place] [id number] Ph: [phone] DIAGNOSTIC IMAGING Diagnostic Imaging Report : [id number] Signed PATIENT: DENY STOLL ACCT: [id number] UNIT: [id number] : 1975 LOC: ER ROOM / BED: / AGE / SEX: 48 / F ADM STATUS: REG ER SERVICE [id number] ORDERING PHYSICIAN: NELLY NGUYEN MD PROCEDURE(s): CXR2 - CHEST TWO VIEWS ROUTINE REASON: cough ORDER NUMBER(s): [id number], ACCESSION NUMBER(s): [id number] CHEST RADIOGRAPH Indication: cough Technique: Frontal and lateral view of the chest was obtained Comparison: None FINDINGS: Lines and Tubes: None Lungs: Clear Pleura: No effusion. No pneumothorax. Cardiomediastinal contours: Unremarkable Bones: Unremarkable IMPRESSION: No evidence of acute disease. ATED BY: BROOKS CARLOS MD DICTATED DATE/TIME: 03/30/241210 SIGNED BY: BROOKS CARLOS MD SIGNED DATE/TIME: 03/30/241 CC: The CBC and chemistry panel are within normal limits The COVID test, influenza a and influenza B are negative The troponin levels are negative The patient was being discharged and will follow up with the primary care doctor The patient will return to the emergency department's the condition worsens. The patient was placed on Zithromax for what seems to be acute bronchitis The patient was also given a Medrol Dosepak Images Reviewed?: Images reviewed and evaluated by me Time of 1ST Reevaluation: 13:30 Reevaluation 1ST: Unchanged Time of 2ND Reevaluation: 16:05 Reevaluation 2ND: Improved Patient Education/Counseling: Diagnosis, Treatment, Prognosis, Need For Follow Up Family Education/Counseling: No Family Present Departure 1 Departure Time of Disposition: 16:05 Impression: Primary Impression: Acute bronchitis Qualified Codes: J20.9 - Acute bronchitis, unspecified Disposition: 01 HOME / SELF CARE / HOMELESS Condition: Fair e-Prescriptions Methylprednisolone (Medrol Dosepak) 4 Mg Ricardo 4 MG PO UD, #21 TAB UAD Prov: NELLY NGUYEN MD 03/30/24 Azithromycin (Zithromax) 1 Gm Pow 1 PACK PO ONCE, #1 PACK Prov: NELLY NGUYEN MD 03/30/24 Discharged With: Self Critical Care Note Critical Care Time?: No Stability Stability form required: No Heart Score Heart Score: Heart Score Response (Comments) Value History N/A 0 EKG N/A 0 Age N/A 0 Risk Factors N/A 0 Troponin N/A 0 Total 0 I personally scribed for NELLY NGUYEN MD ([email or web address]) on 03/30/24 at 14:00. Electronically submitted by Humberto Beck ([email or web address]). NELLY NGUYEN MD Mar 30, 2024 14:00
[2024-03-30] MEDS ORDERED: METH4PAK PO (16:06)
[2024-03-30] MEDS ORDERED: AZIT1POW PO (16:06)
[2024-03-30 16:15] VITALS: BP 143/87; PULSE 69; RESP 18; TEMP 98.7; O2SAT 99
--- NOTE | 2024-03-31 10:22 | ECG ---
[facility] Test Date: 2024-03-30 Test Time: 10:24:42 Pat Name: DENY STOLL Department: ER Room: Gender: F Care Management Coordinator: JOSELINE : 1975 Requested By: NELLY NGUYEN Order Number: [id number] Reading MD: Manuel Bauer Measurements Intervals [place] Rate: 76 P: 71 DE: 140 QRS: 93 QRSD: 109 T: 74 QT: 442 QTc: 498 Interpretive Statements Sinus rhythm Borderline right axis deviation Borderline T abnormalities, anterior leads Borderline prolonged QT interval Electronically Signed On 03-31-2024 13:09:13 PST by Manuel Bauer Please click the below link to view image of tracing.
== END 2024-03-30 16:19 | disposition home or self-care (01) ==
LOC: ER 10:17
DX: J20.9 Acute bronchitis, unspecified (principal); K21.9 Gastro-esophageal reflux disease without esophagitis; Z20.822 Contact with and (suspected) exposure to COVID-19; Z90.49 Acquired absence of other specified parts of digestive tract; Z98.51 Tubal ligation status; Z98.890 Other specified postprocedural states; Z79.899 Other long term (current) drug therapy
CPT/HCPCS: 36415; 71046; 80053; 84484; 85025; 87426; 87804; 93005